=== PATIENT | male | born 1940 | race Two or more races ===

== ENCOUNTER 2021-09-07 06:41 | Observation (INO) | payer MEDICARE ==
[2021-09-06 16:47] LABS: Eosinophils # (auto) 0.2 10 ^3/uL (0-0.8); Lymphocytes # (auto) 2.1 10 ^3/uL (0.4-5.4); Mean Corpuscular Hgb Conc. 31.3 g/dL (32.0-36.0)
[2021-09-06 16:48] LABS: Basophils # (auto) 0.1 10 ^3/uL (0-0.2); Basophils % (auto) 0.7 % (0.0-2.0); Eosinophils % (auto) 2.9 % (0.0-7.0); Hematocrit 22.8 % (41.0-53.0); Hemoglobin 7.1 g/dL (13.5-17.5); Lymphocytes % (auto) 26.5 % (10.0-50.0); Mean Corpuscular Hemoglobin 20.7 pg (28.0-32.0); Mean Corpuscular Volume 66.1 fL (80.0-100.0); Monocytes # (auto) 0.8 10 ^3/uL (0-1.3); Monocytes % (auto) 10.1 % (0.0-12.0); Neutrophils # (auto) 4.7 10 ^3/uL (1.6-8.6); Neutrophils % (auto) 59.8 % (37.0-80.0); Nucleated Red Blood Cells % 0.1 %; Red Blood Cells 3.45 10^6/uL (4.5-5.90); Red Cell Distribution Width 18.8 % (11.8-14.3); White Blood Cell 7.8 10^3/uL (4.4-10.8)
[2021-09-06 17:02] LABS: INR 1.12 (0.9-1.15); Partial Thromboplastin Time 26.4 sec (23.6-33.0)
[2021-09-06 17:07] LABS: Urine Amorphous Crystal FEW /hpf (None Seen); Urine Bacteria FEW /hpf (None Seen); Urine Blood TRACE /uL (Negative); Urine Specific Gravity 1.013 (1.001-1.035); Urine WBC 100 /hpf (0 - 3); Urine WBC Clumps PRESENT /hpf (None Seen)
[2021-09-06 17:49] LABS: Albumin 3.5 g/dL (3.4-5.0); Calcium 8.1 mg/dL (8.5-10.1); Potassium 4.2 mmol/L (3.5-5.1)
[2021-09-06 17:52] LABS: BUN/Creatinine Ratio 15.6; Bilirubin, Total 0.3 mg/dL (0.2-1.0); Total Protein 6.7 g/dL (6.4-8.2)
[~2021-09-07] VITALS: Ht 182.9 cm; Wt 78.0 kg
[~2021-09-07 06:41] MED LIST: ASPI325T4 PO
[2021-09-07] MEDS ORDERED: BUPIVACAINE 0.5% MPF INJ 30ML SDV IJ ONE (07:27)
[2021-09-07] MEDS ORDERED: CIPROFLOXACIN 400MG/200ML 200 ML IV ONE (07:30)
[2021-09-07] MEDS ORDERED: MIDAZOLAM HCL 2MG/2ML 2ml VIAL (1mg/ml) ONE (07:38)
[2021-09-07] MEDS ORDERED: PROPOFOL 10 MG/ML 20 ML IV ONE (07:38)
[2021-09-07] MEDS ORDERED: ONDANSETRON HCL 4 MG/2 ML VIAL ONE (07:38)
[2021-09-07] MEDS ORDERED: fentaNYL CITRATE 100 MCG/2 ML VL ONE (07:38)
[2021-09-07] MEDS ORDERED: METOCLOPRAMIDE HCL 5MG/ml INJ 2ml VIAL IV PRN (08:00)
[2021-09-07] MEDS ORDERED: HYDROmorphone HCL 2 MG/ML VL IV PRN (08:00)
[2021-09-07] MEDS ORDERED: MORPHINE SULFATE 4 MG/ML SYR/VIAL IV PRN (08:00)
[2021-09-07] MEDS ORDERED: DexAMETHasone SOD PHOS 10MG/1ML VIAL INJ ONE (12:21)
[2021-09-07] MEDS ORDERED: GENTAMICIN SULFATE 80 MG in D5W 5% 100 ML IV ONE (13:15)
[2021-09-07] MEDS ORDERED: MORPHINE SULFATE INJECTION 2 MG/ML SYRG IV PRN (13:45)
[2021-09-07] MEDS ORDERED: NITROGLYCERIN 0.4 MG SL TAB SL PRN (13:45)
[2021-09-07 17:00] VITALS: BP 135/79
[2021-09-07 22:00] VITALS: BP 131/78
[2021-09-08 05:00] VITALS: BP 113/70
[2021-09-08 08:19] VITALS: BP 142/72
[2021-09-08] MEDS: CIPROFLOXACIN 400MG/200ML 200 ML IV SCH (10:07)
[2021-09-08 12:30] VITALS: BP 111/62
[2021-09-08 16:50] VITALS: BP 140/70
[2021-09-08 22:28] VITALS: BP 157/84
[2021-09-09 05:30] VITALS: BP 146/76
[2021-09-09 09:00] VITALS: BP 141/79
[2021-09-09] MEDS: CIPROFLOXACIN 400MG/200ML 200 ML IV SCH (09:42)
[2021-09-09 13:00] VITALS: BP 143/77
[2021-09-09 16:34] VITALS: BP 142/80
[2021-09-09 16:47] VITALS: BP 136/80
== END 2021-09-09 19:20 | disposition home or self-care (01) ==
LOC: SUR 06:41 → OVERFLOW 13:35 → WEST WING 16:07
PROVIDERS: ADMIT Urology; ATTEND Urology
DX: N40.1 Benign prostatic hyperplasia with lower urinary tract symptoms (principal); Z20.822 Contact with and (suspected) exposure to COVID-19; R97.20 Elevated prostate specific antigen [PSA]; N31.9 Neuromuscular dysfunction of bladder, unspecified; D64.9 Anemia, unspecified; I10 Essential (primary) hypertension; Z79.899 Other long term (current) drug therapy; Z87.440 Personal history of urinary (tract) infections
CPT/HCPCS: 36415; 36430; 52601; 80053; 81001; 85025; 85610; 85730; 86850; 86900; 86901; 86920; 88305; 96365; 96366; G0378; J0744; J1100; J1580; J2250; J2405; J2704; J3010; J3490; J7030; J7060; P9016; U0003

== ENCOUNTER 2021-09-12 09:57 | Inpatient (IN) | payer MEDICARE ==
[~2021-09-12] VITALS: Ht 185.4 cm; Wt 85.1 kg
[2021-09-12] MEDS: LACTATED RINGER'S 1,000 ML IV ONE (00:45)
[2021-09-12 11:45] LABS: Basophils # (auto) 0 10 ^3/uL (0-0.2); Basophils % (auto) 0.2 % (0.0-2.0); Eosinophils # (auto) 0.1 10 ^3/uL (0-0.8); Hematocrit 26.2 % (41.0-53.0); Nucleated Red Blood Cells % 0.1 %
[2021-09-12 11:46] LABS: Eosinophils % (auto) 1.2 % (0.0-7.0); Hemoglobin 8.5 g/dL (13.5-17.5); Lymphocytes # (auto) 2.2 10 ^3/uL (0.4-5.4); Lymphocytes % (auto) 20.2 % (10.0-50.0); Mean Corpuscular Hemoglobin 22.7 pg (28.0-32.0); Mean Corpuscular Hgb Conc. 32.4 g/dL (32.0-36.0); Neutrophils # (auto) 7.5 10 ^3/uL (1.6-8.6); Neutrophils % (auto) 69.4 % (37.0-80.0); Red Blood Cells 3.74 10^6/uL (4.5-5.90); Red Cell Distribution Width 22.1 % (11.8-14.3); White Blood Cell 10.9 10^3/uL (4.4-10.8)
[2021-09-12 12:12] LABS: Albumin 3.2 g/dL (3.4-5.0); Calcium 7.9 mg/dL (8.5-10.1); Potassium 4.7 mmol/L (3.5-5.1)
[2021-09-12 12:15] LABS: Bilirubin, Total 0.6 mg/dL (0.2-1.0); Total Protein 6.6 g/dL (6.4-8.2)
[2021-09-12] MEDS ORDERED: PANTOPRAZOLE 40 MG/10 ML VIAL INJ IV ONE (13:30)
[2021-09-12] MEDS ORDERED: CHOL20007 PO (15:44)
[2021-09-12] MEDS ORDERED: MORPHINE SULFATE INJECTION 2 MG/ML SYRG IV PRN ×3 (15:45→22:00)
[2021-09-12] MEDS ORDERED: SODIUM CHLORIDE 0.9% 1,000 ML IV ONE (15:45)
[2021-09-12] MEDS ORDERED: NITROGLYCERIN 0.4 MG SL TAB SL PRN ×2 (15:45→22:00)
[2021-09-12] MEDS ORDERED: VITA400T4 PO (15:47)
[2021-09-12] MEDS ORDERED: CYAN50TA3 PO (15:47)
[2021-09-12 16:12] LABS: INR 1.09 (0.9-1.15); Partial Thromboplastin Time 28.8 sec (23.6-33.0)
[2021-09-12] MEDS ORDERED: TAMSULOSIN HYDROCHLORIDE 0.4 MG CAP PO SCH (18:45)
[2021-09-12] MEDS: TAMSULOSIN HYDROCHLORIDE 0.4 MG CAP PO SCH (18:50)
[2021-09-12 22:00] VITALS: BP 125/68
[2021-09-12] MEDS ORDERED: metroNIDAZOLE 500MG/100ML 100 ML IV ONE (22:00)
[2021-09-12] MEDS ORDERED: DOCUSATE SOD 100 MG CAP PO PRN (22:00)
[2021-09-12] MEDS ORDERED: ACETAMINOPHEN 325 MG TAB PO PRN (22:00)
[2021-09-12] MEDS ORDERED: LORazepam 0.5 MG TAB PO PRN (22:00)
[2021-09-12] MEDS ORDERED: cefTRIAXone 1GM/50ML D5W 50 ML IV ONE (22:00)
[2021-09-12] MEDS ORDERED: HYDROcodone-ACET 5/325MG TAB PO PRN (22:00)
[2021-09-12] MEDS ORDERED: ALUM & MAG HYDROX-SIMETH LIQ(MAALOX) 30 ML PO PRN (22:00)
[2021-09-12] MEDS ORDERED: ONDANSETRON HCL 4 MG/2 ML VIAL IV PRN (22:00)
[2021-09-12 23:33] LABS: % Iron Saturation 6.2 % (20-55)
[2021-09-13] MEDS: LACTATED RINGER'S 1,000 ML IV ONE (00:45)
[2021-09-13] MEDS: SODIUM CHLORIDE 0.9% 1,000 ML IV SCH ×4 (01:12→20:47)
[2021-09-13] MEDS: PANTOPRAZOLE 40 MG/10 ML VIAL INJ IV SCH ×3 (01:12→22:10)
[2021-09-13 05:00] VITALS: BP 142/108
[2021-09-13] MEDS: metroNIDAZOLE 500MG/100ML 100 ML IV SCH ×3 (06:00→22:00)
[2021-09-13 07:44] LABS: Basophils % (auto) 0.3 % (0.0-2.0); Eosinophils # (auto) 0 10 ^3/uL (0-0.8); Eosinophils % (auto) 0.2 % (0.0-7.0); Hematocrit 24.3 % (41.0-53.0); Hemoglobin 7.6 g/dL (13.5-17.5); Mean Corpuscular Hemoglobin 21.9 pg (28.0-32.0); Mean Corpuscular Hgb Conc. 31.2 g/dL (32.0-36.0); Neutrophils # (auto) 15.5 10 ^3/uL (1.6-8.6); Red Blood Cells 3.46 10^6/uL (4.5-5.90)
[2021-09-13 07:46] LABS: Basophils # (auto) 0 10 ^3/uL (0-0.2); Lymphocytes # (auto) 1.7 10 ^3/uL (0.4-5.4); Lymphocytes % (auto) 9.4 % (10.0-50.0); Mean Corpuscular Volume 70.3 fL (80.0-100.0); Monocytes # (auto) 1.2 10 ^3/uL (0-1.3); Monocytes % (auto) 6.5 % (0.0-12.0); Neutrophils % (auto) 83.6 % (37.0-80.0); White Blood Cell 18.5 10^3/uL (4.4-10.8)
[2021-09-13 07:47] LABS: Red Cell Distribution Width 22.5 % (11.8-14.3)
[2021-09-13 07:57] LABS: INR 1.12 (0.9-1.15); Partial Thromboplastin Time 27.4 sec (23.6-33.0)
[2021-09-13 08:00] VITALS: BP 105/51
[2021-09-13 08:06] LABS: Albumin 2.9 g/dL (3.4-5.0); Calcium 7.9 mg/dL (8.5-10.1); Magnesium 2.1 mg/dL (1.6-2.6); Potassium 4.5 mmol/L (3.5-5.1)
[2021-09-13 08:16] LABS: BUN/Creatinine Ratio 14.9; Bilirubin, Total 0.6 mg/dL (0.2-1.0); Phosphorus 3.5 mg/dL (2.5-4.90); Total Protein 6.2 g/dL (6.4-8.2); Uric Acid 8.3 mg/dL (3.5-7.2)
[2021-09-13 10:48] LABS: Urine Bacteria NONE SEEN /hpf (None Seen); Urine Blood 3+ /uL (Negative); Urine WBC 4464 /hpf (0 - 3); Urine WBC Clumps PRESENT /hpf (None Seen)
[2021-09-13 10:51] LABS: Urine Specific Gravity 1.015 (1.001-1.035)
[2021-09-13 11:00] LABS: Amphetamine Screen, Urine NEGATIVE (NEGATIVE); Barbiturate Scree,Urine NEGATIVE (NEGATIVE); Benzodiazephine Screen, Urine NEGATIVE (NEGATIVE); Cannabinoid Screen, Urine NEGATIVE (NEGATIVE); Cocaine Screen, Urine NEGATIVE (NEGATIVE); Opiate Scree,Urine NEGATIVE (NEGATIVE); Phencyclidine Screen, Urine NEGATIVE (NEGATIVE)
[2021-09-13 13:00] VITALS: BP 97/56
[2021-09-13] MEDS ORDERED: SODIUM FERR GLUC 62.5MG/5ML 125 MG in SODIUM CHL 0.9% 100 ML IV ONE (15:15)
[2021-09-13] MEDS: cefTRIAXone 1GM/50ML D5W 50 ML IV SCH (15:19)
[2021-09-13 17:00] VITALS: BP 95/48
[2021-09-13] MEDS: TAMSULOSIN HYDROCHLORIDE 0.4 MG CAP PO SCH (17:03)
[2021-09-13 20:00] VITALS: BP 95/50
[2021-09-13] MEDS ORDERED: cefTRIAXone 1GM/50ML D5W 50 ML IV SCH (22:00)
[2021-09-13] MEDS: metroNIDAZOLE 500 MG TAB PO SCH (23:32)
[2021-09-14] VITALS (17 sets, daily range): BP systolic 95–134; BP diastolic 50–76
[2021-09-14] MEDS: cefTRIAXone 1GM/50ML D5W 50 ML IV SCH ×2 (02:37→14:38)
[2021-09-14] MEDS: metroNIDAZOLE 500 MG TAB PO SCH ×3 (05:36→22:00)
[2021-09-14 06:50] LABS: Basophils # (auto) 0 10 ^3/uL (0-0.2); Eosinophils # (auto) 0 10 ^3/uL (0-0.8); Monocytes # (auto) 0.7 10 ^3/uL (0-1.3); Neutrophils # (auto) 6.2 10 ^3/uL (1.6-8.6); Nucleated Red Blood Cells % 0.1 %
[2021-09-14 06:56] LABS: Basophils % (auto) 0.1 % (0.0-2.0); Eosinophils % (auto) 0.4 % (0.0-7.0); Hematocrit 16.7 % (41.0-53.0); Lymphocytes % (auto) 12.7 % (10.0-50.0); Mean Corpuscular Hemoglobin 22.7 pg (28.0-32.0); Mean Corpuscular Hgb Conc. 32.8 g/dL (32.0-36.0); Mean Corpuscular Volume 69.1 fL (80.0-100.0); Monocytes % (auto) 9.4 % (0.0-12.0); Neutrophils % (auto) 77.4 % (37.0-80.0); Red Blood Cells 2.42 10^6/uL (4.5-5.90)
[2021-09-14 07:15] LABS: BUN/Creatinine Ratio 12.3; Calcium 7.2 mg/dL (8.5-10.1); Potassium 4.2 mmol/L (3.5-5.1)
[2021-09-14 07:17] LABS: Red Cell Distribution Width 22.1 % (11.8-14.3)
[2021-09-14 07:20] LABS: Hemoglobin 5.5 g/dL (13.5-17.5)
[2021-09-14 08:30] LABS: Hematocrit 16.6 % (41.0-53.0)
[2021-09-14 08:39] LABS: Hemoglobin 5.3 g/dL (13.5-17.5)
[2021-09-14] MEDS: PANTOPRAZOLE 40 MG/10 ML VIAL INJ IV SCH ×2 (10:09→22:00)
[2021-09-14] MEDS ORDERED: GOLYTELY 4L KIT PO ONE (10:15)
[2021-09-14] MEDS: SODIUM CHLORIDE 0.9% 1,000 ML IV SCH ×2 (11:30→21:30)
[2021-09-14] MEDS: SODIUM FERR GLUC 62.5MG/5ML 125 MG in SODIUM CHL 0.9% 100 ML IV SCH (14:37)
[2021-09-14 19:01] LABS: Hematocrit 24.5 % (41.0-53.0)
[2021-09-14] MEDS: TAMSULOSIN HYDROCHLORIDE 0.4 MG CAP PO SCH (19:25)
[2021-09-15] MEDS: cefTRIAXone 1GM/50ML D5W 50 ML IV SCH ×2 (03:30→14:26)
[2021-09-15] MEDS ORDERED: MAGNESIUM CITRATE SOLUTION 300 ML BTL PO ONE (04:00)
[2021-09-15] MEDS ORDERED: GOLYTELY 4L KIT PO ONE (04:00)
[2021-09-15 05:00] VITALS: BP 122/55
[2021-09-15] MEDS: metroNIDAZOLE 500 MG TAB PO SCH ×3 (06:00→22:25)
[2021-09-15] MEDS: SODIUM CHLORIDE 0.9% 1,000 ML IV SCH ×3 (07:30→22:49)
[2021-09-15] MEDS ORDERED: MIDAZOLAM HCL 5 MG/ML-1ML VIAL ONE (08:05)
[2021-09-15] MEDS ORDERED: diphenhdrAMINE HCL 50 MG/1 ML VL ONE (08:05)
[2021-09-15] MEDS ORDERED: fentaNYL CITRATE 100 MCG/2 ML VL ONE (08:06)
[2021-09-15 09:00] VITALS: BP 129/66
[2021-09-15] MEDS: PANTOPRAZOLE 40 MG/10 ML VIAL INJ IV SCH ×2 (09:47→22:25)
[2021-09-15 11:59] LABS: Basophils # (auto) 0 10 ^3/uL (0-0.2); Eosinophils # (auto) 0 10 ^3/uL (0-0.8); Lymphocytes # (auto) 1.2 10 ^3/uL (0.4-5.4); Mean Corpuscular Hemoglobin 23.6 pg (28.0-32.0); Monocytes # (auto) 0.4 10 ^3/uL (0-1.3)
[2021-09-15 12:00] LABS: Basophils % (auto) 0.3 % (0.0-2.0); Eosinophils % (auto) 0.4 % (0.0-7.0); Hematocrit 24.7 % (41.0-53.0); Hemoglobin 7.9 g/dL (13.5-17.5); Lymphocytes % (auto) 19.3 % (10.0-50.0); Neutrophils # (auto) 4.6 10 ^3/uL (1.6-8.6); Nucleated Red Blood Cells % 0.1 %; Red Blood Cells 3.36 10^6/uL (4.5-5.90); White Blood Cell 6.3 10^3/uL (4.4-10.8)
[2021-09-15] MEDS: SODIUM FERR GLUC 62.5MG/5ML 125 MG in SODIUM CHL 0.9% 100 ML IV SCH (12:00)
[2021-09-15 12:02] LABS: Mean Corpuscular Volume 73.7 fL (80.0-100.0); Red Cell Distribution Width 23.1 % (11.8-14.3)
[2021-09-15 12:18] LABS: BUN/Creatinine Ratio 10.5; Calcium 7.8 mg/dL (8.5-10.1); Potassium 4.4 mmol/L (3.5-5.1)
[2021-09-15 12:26] LABS: INR 1.17 (0.9-1.15); Partial Thromboplastin Time 30.2 sec (23.6-33.0)
[2021-09-15 13:00] VITALS: BP 144/69
[2021-09-15 16:51] VITALS: BP 142/72
[2021-09-15] MEDS: TAMSULOSIN HYDROCHLORIDE 0.4 MG CAP PO SCH (17:12)
[2021-09-15 22:00] VITALS: BP 142/68
[2021-09-16] MEDS: cefTRIAXone 1GM/50ML D5W 50 ML IV SCH ×2 (03:00→14:38)
[2021-09-16 05:00] VITALS: BP 121/65
[2021-09-16] MEDS: metroNIDAZOLE 500 MG TAB PO SCH ×3 (06:00→21:37)
[2021-09-16 09:00] VITALS: BP 132/57
[2021-09-16] MEDS: PANTOPRAZOLE 40 MG/10 ML VIAL INJ IV SCH ×2 (09:21→21:37)
[2021-09-16] MEDS: SODIUM CHLORIDE 0.9% 1,000 ML IV SCH ×2 (12:52→21:39)
[2021-09-16] MEDS: SODIUM FERR GLUC 62.5MG/5ML 125 MG in SODIUM CHL 0.9% 100 ML IV SCH (12:52)
[2021-09-16 17:00] VITALS: BP 148/78
[2021-09-16] MEDS: TAMSULOSIN HYDROCHLORIDE 0.4 MG CAP PO SCH (18:10)
[2021-09-16 22:00] VITALS: BP 146/77
[2021-09-17] MEDS: cefTRIAXone 1GM/50ML D5W 50 ML IV SCH ×2 (03:18→16:22)
[2021-09-17 05:00] VITALS: BP 145/95
[2021-09-17] MEDS: metroNIDAZOLE 500 MG TAB PO SCH ×3 (05:01→21:49)
[2021-09-17 07:50] LABS: Basophils # (auto) 0 10 ^3/uL (0-0.2); Eosinophils # (auto) 0.1 10 ^3/uL (0-0.8); Hematocrit 29.6 % (41.0-53.0); Monocytes # (auto) 0.6 10 ^3/uL (0-1.3); Neutrophils # (auto) 4.6 10 ^3/uL (1.6-8.6); Red Blood Cells 4.01 10^6/uL (4.5-5.90)
[2021-09-17 07:52] LABS: Potassium 4.5 mmol/L (3.5-5.1)
[2021-09-17 08:01] LABS: Basophils % (auto) 0.3 % (0.0-2.0); Eosinophils % (auto) 1.5 % (0.0-7.0); Hemoglobin 9.7 g/dL (13.5-17.5); Lymphocytes # (auto) 1.5 10 ^3/uL (0.4-5.4); Lymphocytes % (auto) 22.6 % (10.0-50.0); Mean Corpuscular Hemoglobin 24.1 pg (28.0-32.0); Mean Corpuscular Hgb Conc. 32.6 g/dL (32.0-36.0); Mean Corpuscular Volume 73.9 fL (80.0-100.0); Monocytes % (auto) 8.4 % (0.0-12.0); Neutrophils % (auto) 67.2 % (37.0-80.0); Nucleated Red Blood Cells % 0.1 %; White Blood Cell 6.8 10^3/uL (4.4-10.8)
[2021-09-17 08:10] LABS: BUN/Creatinine Ratio 6.8; Calcium 8.5 mg/dL (8.5-10.1)
[2021-09-17 08:14] LABS: Red Cell Distribution Width 23.6 % (11.8-14.3)
[2021-09-17 09:00] VITALS: BP 117/60
[2021-09-17] MEDS: PANTOPRAZOLE 40 MG/10 ML VIAL INJ IV SCH ×2 (10:00→21:49)
[2021-09-17] MEDS ORDERED: diphenhdrAMINE HCL 50 MG/1 ML VL ONE (11:25)
[2021-09-17] MEDS ORDERED: SIMETHICONE 40 MG/0.6 ML ORAL DROP ONE (11:36)
[2021-09-17] MEDS: MIDAZOLAM HCL 5 MG/ML-1ML VIAL ONE ×2 (11:51→11:57)
[2021-09-17] MEDS: fentaNYL CITRATE 100 MCG/2 ML VL ONE ×2 (11:51→11:57)
[2021-09-17 13:00] VITALS: BP 153/91
[2021-09-17] MEDS: SODIUM CHLORIDE 0.9% 1,000 ML IV SCH ×2 (16:22→19:30)
[2021-09-17] MEDS: SODIUM FERR GLUC 62.5MG/5ML 125 MG in SODIUM CHL 0.9% 100 ML IV SCH (16:22)
[2021-09-17 17:00] VITALS: BP 147/62
[2021-09-17] MEDS: TAMSULOSIN HYDROCHLORIDE 0.4 MG CAP PO SCH (18:45)
[2021-09-17 22:00] VITALS: BP 160/88
[2021-09-18] MEDS: cefTRIAXone 1GM/50ML D5W 50 ML IV SCH (03:40)
[2021-09-18 05:00] VITALS: BP 140/65
[2021-09-18] MEDS: SODIUM CHLORIDE 0.9% 1,000 ML IV SCH ×2 (05:30→12:43)
[2021-09-18] MEDS: metroNIDAZOLE 500 MG TAB PO SCH ×2 (05:58→12:44)
[2021-09-18 06:40] LABS: Basophils # (auto) 0 10 ^3/uL (0-0.2); Eosinophils # (auto) 0.1 10 ^3/uL (0-0.8); Hemoglobin 8.7 g/dL (13.5-17.5); Monocytes # (auto) 0.6 10 ^3/uL (0-1.3); Neutrophils # (auto) 5.4 10 ^3/uL (1.6-8.6)
[2021-09-18 06:46] LABS: Basophils % (auto) 0.4 % (0.0-2.0); Eosinophils % (auto) 1.9 % (0.0-7.0); Hematocrit 26.5 % (41.0-53.0); Lymphocytes # (auto) 1.6 10 ^3/uL (0.4-5.4); Lymphocytes % (auto) 20.5 % (10.0-50.0); Mean Corpuscular Hemoglobin 24.4 pg (28.0-32.0); Mean Corpuscular Hgb Conc. 32.7 g/dL (32.0-36.0); Mean Corpuscular Volume 74.6 fL (80.0-100.0); Monocytes % (auto) 7.7 % (0.0-12.0); Neutrophils % (auto) 69.5 % (37.0-80.0); Nucleated Red Blood Cells % 0.1 %; Red Blood Cells 3.56 10^6/uL (4.5-5.90); Red Cell Distribution Width 23.5 % (11.8-14.3); White Blood Cell 7.7 10^3/uL (4.4-10.8)
[2021-09-18 08:25] VITALS: BP 128/81
[2021-09-18] MEDS: PANTOPRAZOLE 40 MG/10 ML VIAL INJ IV SCH (10:03)
[2021-09-18 12:25] VITALS: BP 144/76
[2021-09-18] MEDS: SODIUM FERR GLUC 62.5MG/5ML 125 MG in SODIUM CHL 0.9% 100 ML IV SCH (12:43)
[2021-09-18 14:35] VITALS: BP 157/80
[2021-09-18] MEDS: TAMSULOSIN HYDROCHLORIDE 0.4 MG CAP PO SCH (17:46)
[2021-09-19] MEDS: metroNIDAZOLE 500 MG TAB PO SCH ×2 (00:46→05:00)
[2021-09-19] MEDS: SODIUM CHLORIDE 0.9% 1,000 ML IV SCH (01:50)
[2021-09-19 05:00] VITALS: BP 140/61
[2021-09-19 07:54] LABS: Basophils # (auto) 0 10 ^3/uL (0-0.2); Basophils % (auto) 0.4 % (0.0-2.0); Eosinophils # (auto) 0.1 10 ^3/uL (0-0.8); Eosinophils % (auto) 1.3 % (0.0-7.0); Hematocrit 27.5 % (41.0-53.0); Monocytes # (auto) 0.6 10 ^3/uL (0-1.3); Neutrophils # (auto) 6.1 10 ^3/uL (1.6-8.6)
[2021-09-19 07:57] LABS: Lymphocytes # (auto) 1.4 10 ^3/uL (0.4-5.4); Lymphocytes % (auto) 16.5 % (10.0-50.0); Mean Corpuscular Hemoglobin 24.4 pg (28.0-32.0); Mean Corpuscular Hgb Conc. 32.9 g/dL (32.0-36.0); Mean Corpuscular Volume 74.4 fL (80.0-100.0); Monocytes % (auto) 7.3 % (0.0-12.0); Neutrophils % (auto) 74.5 % (37.0-80.0); Red Blood Cells 3.69 10^6/uL (4.5-5.90); White Blood Cell 8.2 10^3/uL (4.4-10.8)
[2021-09-19 08:15] LABS: Potassium 3.8 mmol/L (3.5-5.1)
[2021-09-19 08:19] LABS: BUN/Creatinine Ratio 9.3; Calcium 7.7 mg/dL (8.5-10.1)
[2021-09-19] MEDS ORDERED: PANTOPRAZOLE 40 MG TAB PO SCH (10:00)
[2021-09-19] MEDS ORDERED: cefTRIAXone 1GM/50ML D5W 50 ML IV SCH (10:00)
[2021-09-19] MEDS: SODIUM FERR GLUC 62.5MG/5ML 125 MG in SODIUM CHL 0.9% 100 ML IV SCH (12:00)
== END 2021-09-19 14:00 | disposition home or self-care (01) | DRG 871 ==
LOC: ER 09:57 → EDBD 09:57 → TELE 15:31 → TELE-WESTW 20:51
PROVIDERS: ADMIT Hospitalist; ATTEND Internal Medicine
PROC: 30233N1 Transfusion of Nonautologous Red Blood Cells into Peripheral Vein, Percutaneous Approach (ICD-10-PCS; 2021-09-14)
PROC: 0DBL8ZX Excision of Transverse Colon, Via Natural or Artificial Opening Endoscopic, Diagnostic (ICD-10-PCS; 2021-09-17)
PROC: 0DBN8ZZ Excision of Sigmoid Colon, Via Natural or Artificial Opening Endoscopic (ICD-10-PCS; principal; 2021-09-17 11:48)
DX: A41.9 Sepsis, unspecified organism (principal); K57.31 Diverticulosis of large intestine without perforation or abscess with bleeding; N17.0 Acute kidney failure with tubular necrosis; D62 Acute posthemorrhagic anemia; N13.8 Other obstructive and reflux uropathy; N18.4 Chronic kidney disease, stage 4 (severe); N13.6 Pyonephrosis; N40.1 Benign prostatic hyperplasia with lower urinary tract symptoms; D72.829 Elevated white blood cell count, unspecified; E88.09 Other disorders of plasma-protein metabolism, not elsewhere classified; I12.9 Hypertensive chronic kidney disease with stage 1 through stage 4 chronic kidney disease, or unspecified chronic kidney disease; K76.0 Fatty (change of) liver, not elsewhere classified; Z20.822 Contact with and (suspected) exposure to COVID-19; K63.5 Polyp of colon; D50.9 Iron deficiency anemia, unspecified; M19.90 Unspecified osteoarthritis, unspecified site; Z79.899 Other long term (current) drug therapy; Z87.19 Personal history of other diseases of the digestive system; Z90.79 Acquired absence of other genital organ(s); Z79.1 Long term (current) use of non-steroidal anti-inflammatories (NSAID)
CPT/HCPCS: 36415; 45384; 51702; 71045; 74176; 76775; 80048; 80053; 80307; 81001; 82306; 82378; 83036; 83540; 83550; 83735; 83880; 84100; 84443; 84484; 84550; 85014; 85018; 85025; 85379; 85610; 85730; 86850; 86900; 86901; 86920; 87040; 87086; 87426; 93005; 96361; 96374; 99291; C9113; G0378; J0696; J2250